=== PATIENT | female | born 1935 | race Caucasian/White ===

== ENCOUNTER → 2016-05-04 | Outpatient (CLI) | payer OTHER ==
[~2016-05-04] MED LIST: AMLODIPINE BESY10 MG PO; ANASTROZOLE1 MG PO; ASPIRIN81 M2 PO; ATENOLOL PO; ATENOLOL50 MG PO; CALCIUM 500 +1 EAC2 PO; CALCIUM 600 +1 EA14; CARDIZEM CD PO; CELEBREX PO; CENTRUM PO; CENTRUM SILVER PO; CLARITIN10 M2 PO; CLARITIN10 MG PO; DEXAMETHASONE4 MG PO; DULOXETINE HCL60 M1 PO; FIBER PO; FIBERCON625 MG PO; FLONASE 0.05% N16 G1; FLONASE16 GM; FLUCONAZOLE; HCTZ PO; HYDROCHLOROTHIA25 MG PO; IMITREX PO; IMITREX50 MG PO; KEFLEX500 MG PO; LEVAQUIN750 M1 PO; LIPITOR20 MG DOB; LISINOPRIL; LISINOPRIL20 MG PO; MAGNESIUM400 MG PO; MULTI VITAMIN1 EACH; NAPHCON A EYE; NAPROXEN PO; NEURONTIN600 MG; NILSTAT PO; OCUVITE LUTEIN1 CA1 PO; OCUVITE TABLET1 TAB PO; OMEPRAZOLE20 M1 PO; ONDANSETRON ODT4 MG PO; OYSTER CALCIUM500 MG PO; PERCOCET 5-3251 TAB PO; PERCOCET5/325 PO; PRILOSEC PO; RESTORIL15 MG PO; TEKTURNA; TEMAZEPAM PO; VIT B12 INJ; VIT B12 PO; VITAL-D RX TABL1 TAB PO; VITAMIN A; VITAMIN B 12; VITAMIN B-1000 MCG/1 INJ; VITAMIN B1; VITAMIN C PO; VITAMIN C1000 M2 PO; VITAMIN C500 M1 PO; VITAMIN D1000 UNIT PO; ZINC SULFATE PO; ZINC50 M1 PO; ZOFRAN PO; ZOFRAN2 MG/M1; [UNRECOGNIZED DRUG - CODE]; [UNRECOGNIZED DRUG - OTHER]
--- NOTE | ~2016-05-04 | CT2 ---
[facility] A Service of [facility] RADIOLOGY TEXT RESULTS PATIENT: RAIMUNDO KEN LOCATION: [facility] : 35 UNIT #: [id number] AGE: [address]: Chelsea Dudley MD SEX: F ORDER DR: [id number] [facility] [address] [place], [place] [address] [id number] O MR#: [id number] Acc #: [id number] NAME: RAIMUNDO KEN : 1935 SEX: F STUDY DATE/TIME: 05/04/2016 11:36 UNIT: [facility] ROOM: STUDY DESCRIPTION: CT Abd and Pelv W Cont Attending Physician: Chelsea Dudley M.D. Ordering Physician: Chelsea Dudley M.D. Primary Care Physician: Lexa Reeves M.D. MEDICAL IMAGING REPORT This report is preliminary unless electronic signature is present EXAM CT abdomen and pelvis with contrast INDICATIONS Restaging breast cancer. Right breast cancer status post mastectomy 2013. TECHNIQUE Contrast-enhanced CT of the abdomen and pelvis. 100 cc of Isovue-370. This CT exam was performed with one or more of the following radiation dose reduction techniques: automatic exposure control, adjustment of mA and/or kV according to patient size, and iterative reconstruction. COMPARISON 06/17/2015. FINDINGS ABDOMEN WITH CONTRAST: Refer to separately dictated chest CT for thoracic findings. Liver, spleen, adrenal glands, pancreas and gallbladder unremarkable. Small hiatal hernia. Small cyst in the upper pole of the left kidney is stable. Small non-obstructing calculi in the lower pole right and left kidney. Moderate colonic stool burden. Appendix is normal. PELVIS WITH CONTRAST: Previous hysterectomy. No pelvic mass or fluid. No aggressive appearing bone lesion. IMPRESSION No convincing evidence for metastatic disease in the abdomen or pelvis. [facility] A Service [facility] RADIOLOGY TEXT RESULTS PATIENT: RAIMUNDO KEN LOCATION: [facility] : 35 UNIT #: [id number] AGE: [address]: Chelsea Dudley MD SEX: F ORDER DR: Dictated by... Johan Davis M.D. THIS IS AN ELECTRONICALLY VERIFIED REPORT Johan Davis M.D. at 05/05/2016 7:53 AM EED/pcl TD: 05/04/2016 17:01 JOB #: [id number] MEDICAL IMAGING REPORT COPY
--- NOTE | ~2016-05-04 | CT55 ---
[facility] A Service of [facility] RADIOLOGY TEXT RESULTS PATIENT: RAIMUNDO KEN LOCATION: [facility] : 35 UNIT #: [id number] AGE: [address]: Chelsea Dudley MD SEX: F ORDER DR: [id number] [facility] [address] [place], [place] [address] [id number] O MR#: [id number] Acc #: [id number] NAME: RAIMUNDO KEN : 1935 SEX: F STUDY DATE/TIME: 05/04/2016 11:36 UNIT: [facility] ROOM: STUDY DESCRIPTION: CT Chest W Con Attending Physician: Chelsea Dudley M.D. Ordering Physician: Chelsea Dudley M.D. Primary Care Physician: Lexa Reeves M.D. MEDICAL IMAGING REPORT This report is preliminary unless electronic signature is present EXAM CT chest with contrast. HISTORY Restaging breast cancer. Patient is status post right mastectomy, February 2013. Observation for metastatic disease. PROCEDURE Contrast-enhanced CT of the chest. 100 mL of Isovue-370. This CT exam was performed with one or more of the following radiation dose reduction techniques: automatic exposure control, adjustment of mA and/or kV according to patient size, and iterative reconstruction. COMPARISON STUDIES 06/17/2015 FINDINGS Previous right mastectomy. There is a 3-mm noncalcified nodule in the right lower lobe. This has been stable since 2013 and is benign. No dense consolidation, no new nodule. No adenopathy. No aggressive-appearing bone lesion. IMPRESSION No evidence for metastatic disease to the chest. No change from 06/17/2015. Dictated by... Johan Davis M.D. THIS IS AN ELECTRONICALLY VERIFIED REPORT Johan Davis M.D. at 05/05/2016 7:53 AM [facility] A Service [facility] RADIOLOGY TEXT RESULTS PATIENT: RAIMUNDO KEN LOCATION: [facility] : 35 UNIT #: [id number] AGE: [address]: Chelsea Dudley MD SEX: F ORDER DR: DAMIAN/zuleima TD: 05/04/2016 16:34 JOB #: [id number] MEDICAL IMAGING REPORT COPY
--- NOTE | ~2016-05-04 | MY7 ---
[facility] A Service of [facility] RADIOLOGY TEXT RESULTS PATIENT: RAIMUNDO KEN LOCATION: [facility] : 35 UNIT #: [id number] AGE: [address]: Chelsea Dudley MD SEX: F ORDER DR: [id number] [facility] [address] [place], [place] [address] [id number] O MR#: [id number] Acc #: [id number] NAME: RAIMUNDO KEN. : 1935 SEX: F STUDY DATE/TIME: 05/04/2016 9:03 UNIT: [facility] ROOM: STUDY DESCRIPTION: MY Mammogram Dx Dig Lt Attending Physician: Chelsea Dudley M.D. Ordering Physician: Chelsea Dudley M.D. Primary Care Physician: Lexa Reeves M.D. MEDICAL IMAGING REPORT This report is preliminary unless electronic signature is present EXAM Left digital diagnostic mammogram with CAD COMPARISON May 19, 2015; May 16, 2014; March 16 2013; March 13, 2013; March 02, 2013 and April 13, 2012. INDICATION 80-year-old female with a history of right breast cancer treated with mastectomy February 2013. Patient denies current complaints. FINDINGS There are scattered fibroglandular densities in the left breast. There are no suspicious findings in the left breast. IMPRESSION 1. Post right mastectomy for breast cancer. 2. No mammographic evidence of malignancy in the left breast. Continued annual mammography is recommend for as long as the patient is in good health ([employer]). Patients over the age of 40 are entered into a reminder system with target due date for the next mammogram. A result letter will also be sent to the patient. BIRADS: 2 Benign Finding Dictated by... Khoa Tee M.D. THIS IS AN ELECTRONICALLY VERIFIED REPORT Khoa Tee M.D. at 05/04/2016 1:07 PM [facility] A Service [facility] RADIOLOGY TEXT RESULTS PATIENT: RAIMUNDO KEN LOCATION: [facility] : 35 UNIT #: [id number] AGE: [address]: Chelsea Dudley MD SEX: F ORDER DR: ANGEL/karla TD: 05/04/2016 12:11 JOB #: [id number] MEDICAL IMAGING REPORT COPY
[2016-05-04 10:41] LABS: POC - GFR >60.0 mL/min (>60)
== END | disposition home or self-care (01) ==
LOC: CMAM 08:34
PROVIDERS: Internal Medicine Hematology
DX: C50.919 Malignant neoplasm of unspecified site of unspecified female breast (principal); Z90.11 Acquired absence of right breast and nipple
CPT/HCPCS: 71260; 74177; 82565; G0206; Q9967

== ENCOUNTER → 2016-07-14 | Outpatient (CLI) | payer MEDICARE ==
--- NOTE | ~2016-07-14 | TH ---
Unit #: [id number] #: [id number] Patient: RAIMUNDO KEN [id number] [facility]. [place], [place] [address] [id number] O MR#: [id number] NAME: RAIMUNDO KEN. : 1935 SEX: F STUDY DATE/TIME: 07/14/2016 UNIT: [facility] ROOM: STUDY DESCRIPTION: Cardoilite imaging Attending Physician: Sander Stone M.D. Referring Physician: Sander Stone M.D. Primary Care Physician: Lexa Reeves M.D. CARDIOLOGY REPORT EXAM Cardiac stress test/Cardiolite imaging. INDICATION FOR STUDY Dyspnea, inability to exercise adequately for the diagnosis of obstructive coronary disease contributing to the patient's dyspnea. SUMMARY The patient was given Lexiscan intravenously while at rest as well as technetium 99m Cardiolite 12.9 and 34.6 mCi at rest and stress respectively. Appropriate views were obtained. FINDINGS Resting ECG showed flattened T waves across the precordium. With stress there was new T wave inversion from V2 through V6, and in 2, 3, AVF. There is also [address] depression, downsloping in leads 3 and AVF. There were no significant dysrhythmias. Heart rate increased from 62 to 91 and blood pressure decreased from 171/82 to 152/71. Perfusion images demonstrated normal perfusion throughout the myocardium at both rest and stress, with intestinal artifact present more at stress than at rest. End-diastolic volume is 79 ml, ejection fraction is greater than 65%. There is no significant patient motion noted during acquisition of the stress images. There is no increased lung uptake, left ventricular or right ventricular enlargement. Summed stress scores is 1. IMPRESSION 1. Myocardial perfusion scan demonstrates no ischemia or infarction. 2. Normal wall motion with excellent ejection fraction. 3. Abnormal stress ECG with Lexiscan, suggestive of ischemia. Cannot rule out small vessel ischemia in this patient. Dictated by... Juan Colbert M.D. Akiko TD: 07/14/2016 13:44 JOB #: [id number] Unit #: [id number] #: [id number] Patient: RAIMUNDO KEN CARDIOLOGY REPORT Page 1 of 1 X Juan Colbert MD CARDIOLOGY REPORT
--- NOTE | ~2016-07-14 | ST ---
Unit #: [id number] #: [id number] Patient: RAIMUNDO KEN [id number] [address] [id number] O MR#: [id number] NAME: RAIMUNDO KEN. : 1935 SEX: F STUDY DATE/TIME: 07/14/2016 UNIT: CN ROOM: STUDY DESCRIPTION: Cardiac stress test. Attending Physician: Sander Stone M.D. Referring Physician: Sander Stone M.D. Primary Care Physician: Lexa Reeves M.D. CARDIOLOGY REPORT EXAM Cardiac stress test. Results included in Cardiolite imaging report. Dictated by... Juan Colbert M.D. PJR/gz TD: 07/14/2016 13:50 JOB #: [id number] CARDIOLOGY REPORT Page 1 of 1 X Juan Colbert MD CARDIOLOGY REPORT
== END | disposition home or self-care (01) ==
LOC: CNUC 06:19
DX: Z01.818 Encounter for other preprocedural examination (principal); I11.9 Hypertensive heart disease without heart failure; I34.0 Nonrheumatic mitral (valve) insufficiency; R94.31 Abnormal electrocardiogram [ECG] [EKG]
CPT/HCPCS: 78452; 93017; 93306; A9500; J2785

== ENCOUNTER 2016-11-07 17:36 | Observation (INO) | payer MEDICARE ==
[~2016-11-07] VITALS: Ht 162.6 cm; Wt 81.2 kg
--- NOTE | ~2016-11-07 | CR72 ---
[facility] A Service of [facility] RADIOLOGY TEXT RESULTS PATIENT: RAIMUNDO KEN LOCATION: [facility] 306- : 35 UNIT #: [id number] AGE: [address]: JONATHAN AUGUST MD SEX: F ORDER DR: [id number] [facility] [address] [place], [place] [address] [id number] I MR#: [id number] Acc #: [id number] NAME: RAIMUNDO KEN : 1935 SEX: F STUDY DATE/TIME: 11/07/2016 18:38 UNIT: [address] ROOM: [facility] STUDY DESCRIPTION: CR Chest Single View Portable Attending Physician: Jonathan August M.D. Ordering Physician: Bozena Meyers M.D. Primary Care Physician: Lexa Reeves M.D. MEDICAL IMAGING REPORT This report is preliminary unless electronic signature is present EXAM AP portable chest Date: 11/07/2016 HISTORY Cough, congestion for 2 hours today. History of right breast cancer. Chest pain and shortness of breath. COMPARISON PA lateral chest radiograph 07/12/2016 FINDINGS Faint reticular nodular opacities are seen within the wpv-vp-[id number] lung zones bilaterally, favored to represent small airways infectious-inflammatory change. No dense consolidation is seen. Surgical clips are seen in the right axilla. Heart size is normal. No acute osseous abnormalities. IMPRESSION 1. Reticular nodular opacities in the ncu-rh-bjtuz lung zones may represent changes of small airways infectious-inflammatory process. No dense lung consolidations are identified. Dictated by... Laura Kowalski M.D. THIS IS AN ELECTRONICALLY VERIFIED REPORT Laura Kowalski M.D. at 11/09/2016 9:52 AM LLH/chase TD: 11/08/2016 11:56 JOB #: [id number] [facility] A Service of [facility] RADIOLOGY TEXT RESULTS PATIENT: RAIMUNDO KEN LOCATION: [facility] 306-01 : 35 UNIT #: [id number] AGE: [address]: JONATHAN AUGUST MD SEX: F ORDER DR: MEDICAL IMAGING REPORT Page 1 of 1 COPY
--- NOTE | ~2016-11-07 | EKG ---
PATIENT: RAIMUNDO KEN UNIT #: [id number] Ventricular Rate: 58 BPM Atrial Rate: 58 BPM P-R Interval: 170 ms QRS Duration: 76 ms Q-T Interval: 454 ms QTC Calculation(Bezet): 445 ms P [place]: 96 degrees Calculated R [place]: -8 degrees Calculated T [place]: 41 degrees Diagnosis Line: Sinus bradycardia Diagnosis Line: Otherwise normal ECG Diagnosis Line: When compared with ECG of 03-JUN-2014 10:23, Diagnosis Line: No significant change was found Diagnosis Line: Confirmed by CECILIA BUNDY MD ([id number]) on 11/07/2016 Diagnosis Line: 11:09:50 PM INTERPRETING MD: GREGOR NELSON
--- NOTE | ~2016-11-07 | DS ---
Unit #: [id number] #: [id number] Patient: RAIMUNDO KEN [id number] [facility]. [place], [place] [address] [id number] I MR#: [id number] NAME: RAIMUNDO KEN. ROOM: 306 Age: 81 Sex: F Admission Date: 11/07/2016 : 1935 Discharge Date: 11/08/2016 Attending Physician: Cat Horvath M.D. Primary Care Physician: Lexa Reeves M.D. DISCHARGE SUMMARY SHORT STAY SUMMARY HISTORY OF PRESENT ILLNESS This is an 81-year-old female known to Dr. Harris and Dr. Sander Stone with a prior history of hypertension, hyperlipidemia, TIA in the , breast cancer, status post mastectomy and chemotherapy, and prior negative Lexiscan stress test in June 2016. An echocardiogram done in June 2016 showed EF normal, mild LVH, mild to moderate mitral regurgitation, mild to moderate tricuspid regurgitation, and mild to moderate mitral regurgitation, with RVSP 52 mmHg. Patient reports she has had multiple cardiac caths over the years. She states her last cardiac cath was in 2004, although she cannot remember where or who did it. She states her cardiac cath showed normal coronary arteries. The patient presented to the ER with reports of chest discomfort. She states she was cooking dinner yesterday and developed left chest discomfort described as dull ache and a midsternal pressure. The pressure spread to her throat, and she felt like she needed to burp. She does endorse shortness of air, nausea, and diaphoresis with the discomfort. She denies palpitations or dizziness. She said she has had similar incidents in the past, although less intense, and none in the past year. The patient states she is fairly active, and she denies exertional chest pain or shortness of air, but she does report occasional dizziness. Denies dyspnea, PND, or orthopnea. Denies lower extremity edema. The pain lasted approximately 30 minutes. It resolved after nitroglycerin and aspirin were given per EMS. States she does not feel like the pain was her heart, but it scared her, so she called EMS. Her troponin was negative x2. EKG showed sinus bradycardia with nonspecific T wave abnormalities but no ischemic changes. PAST MEDICAL HISTORY 1. Hypertension. 2. Hyperlipidemia. 3. TIA in . 4. Negative Lexiscan stress test in June 2016. 5. Cardiac cath last in 2004, records not available, reportedly normal coronary arteries per patient. 6. Breast cancer, status post mastectomy, with chemotherapy. 7. Echocardiogram in June 2016 showed a normal EF, mild LVH, and mild to moderate mitral regurgitation and tricuspid regurgitation, with RVSP 52 mmHg. 8. Macular degeneration. 9. History of arrhythmia, patient does not know what type of arrhythmia. 10. Osteoarthritis. Unit #: [id number] #: [id number] Patient: RAIMUNDO KEN PAST SURGICAL HISTORY 1. Tonsillectomy. 2. Hysterectomy. 3. Lumbar laminectomy. 4. Right modified radical mastectomy. 5. Cataract removal and lens implant. 6. Colon resection. 7. Total knee replacement in June 2016. FAMILY HISTORY Her father after an NE at the age of 50. Her brother had coronary artery disease and at the age of 61 from complications of an NE. Her mother had a NE in her 60s and at the age of 84. Her sister has coronary artery disease and is alive. SOCIAL HISTORY The patient is a lifetime nonsmoker. She denies alcohol or illicit drug use. She is a and lives alone. ALLERGIES No known drug allergies. HOME MEDICATIONS 1. Hydrochlorothiazide 25 mg p.o. daily. 2. Atenolol 50 mg p.o. twice daily. 3. Norvasc 10 mg p.o. daily. 4. Lisinopril 40 mg p.o. daily. 5. Omeprazole 20 mg p.o. daily. 6. Anastrozole 1 mg p.o. at bedtime. 7. Claritin 10 mg p.o. daily. 8. Flonase nasal spray 16 g nasally daily. 9. Lipitor 20 mg p.o. daily. 10. Imitrex 50 mg p.o. daily. 11. Duloxetine 60 mg p.o. daily. REVIEW OF SYSTEMS A 10-point review of systems was conducted and is otherwise negative except for what was stated in the HPI. PHYSICAL EXAMINATION VITAL SIGNS: Temperature 97.6, heart rate 60, blood pressure 159/57. GENERAL: This is a pleasant 81-year-old female resting in bed in no acute distress. HEENT: Head is atraumatic and normocephalic. Pupils are equal and reactive to light. Mucous membranes are moist and intact. NECK: Supple. Trachea is midline. No JVD. LUNGS: Clear. Nonlabored respirations. CARDIOVASCULAR: S1 and S2. Regular rate and rhythm. Positive systolic murmur. No rubs or gallops. ABDOMEN: Soft, nontender, nondistended. Positive bowel sounds. EXTREMITIES: Pulses are palpable. No pedal edema. NEUROLOGIC: Alert and oriented x3. Moves all extremities equally and follows commands without difficulty. DIAGNOSTIC STUDIES LABORATORY: Sodium 134, potassium 3.6, chloride 101, BUN 15, creatinine 0.7, glucose 98. Hemoglobin 12.5, hematocrit 36.4, white blood cell count Unit #: [id number] #: [id number] Patient: RAIMUNDO KEN D 5.5, platelets 212,000. TSH 6.28. AST 25, ALT 18, alkaline phosphatase 88. BNP 98. Point of care troponin less than 0.05 and repeat troponin 0.03. Cholesterol 175, triglycerides 189, LDL 101, and HDL 35. IMAGING: Chest x-ray shows reticular nodular opacities in the rks-fo-mfoio lung zones which may represent changes of small airways infectious-inflammatory process. No dense lung consolidations are identified. CARDIOLOGY: EKG shows sinus bradycardiac with nonspecific T wave abnormalities. ASSESSMENT 1. Chest pain, atypical. 2. Lexiscan stress test negative for ischemia June 2016. 3. Hypertension. 4. Hyperlipidemia. 5. History of arrhythmia. PLAN Patient is currently chest pain free. Her troponins and EKG are negative for ischemic changes. She had a negative Lexiscan stress test in June 2016 as preop evaluation for knee replacement surgery. She denies exertional chest pain, and she would like to go home. We will discharge her home. Follow up with her primary care doctor in one to two weeks. Start PPI. Consider GI workup as outpatient. She was instructed to return to hospital if her chest pain returns. We will replace her potassium prior to discharge. She can follow up with Dr. Stone in six to eight weeks. Dictated by... FRAN Dillard/kenna TD: 11/08/2016 17:09 JOB #: [id number] DISCHARGE SUMMARY Page 1 of 1 X X DISCHARGE SUMMARY
--- NOTE | ~2016-11-07 | EKG ---
PATIENT: RAIMUNDO KEN UNIT #: [id number] Ventricular Rate: 61 BPM Atrial Rate: 61 BPM P-R Interval: 150 ms QRS Duration: 72 ms Q-T Interval: 458 ms QTC Calculation(Bezet): 461 ms Calculated T [place]: 43 degrees Diagnosis Line: Normal sinus rhythm Diagnosis Line: Normal ECG Diagnosis Line: When compared with ECG of 07-NOV-2016 17:43, Diagnosis Line: No significant change was found Diagnosis Line: Confirmed by CIRILO CHAWLA MD ([id number]) on 11/10/2016 Diagnosis Line: 7:49:50 AM INTERPRETING MD: CAMMY NELSON
[~2016-11-07 17:36] MED LIST changes: -ASPIRIN81 M2 PO; -DULOXETINE HCL60 M1 PO; -IMITREX50 MG PO
[2016-11-07 19:02] LABS: BASOPHIL% 0.8 % (0-2.5); EOSINOPHIL# 0.3 X10e3 (0-0.7); EOSINOPHIL% 4.5 % (0.0-7.0); HEMATOCRIT 36.4 % (35.0-45.0); HEMOGLOBIN 12.5 gm/dL (12.0-16.0); LYMPHOCYTE# 1.3 X10e3 (1.0-3.5); LYMPHOCYTE% 23.7 % (17.0-45.0); MEAN CELL VOLUME 92.4 FL (83-96); MEAN CORPUSCULAR HEMOGLOBIN 31.8 PG (28-34); MEAN CORPUSCULAR HGB CONC 34.4 g/dL (30-36); MONOCYTE# 0.7 X10e3 (0-1.0); NEUTROPHIL# 3.3 X10e3 (1.5-7.1); PLATELET COUNT 207 X10e3 (140-420); RED BLOOD COUNT 3.94 X10e (3.90-5.30); RED CELL DISTRIBUTION WIDTH 13.7 % (11.0-15.5); WHITE BLOOD COUNT 5.5 X10e3 (4.0-10.5)
[2016-11-07 19:07] LABS: DIFF IND NO
[2016-11-07 19:14] LABS: PROTHROMBIN TIME (PATIENT) 10.7 SECONDS (10.0-11.7)
[2016-11-07 19:21] LABS: POC - CKMB 2.4 ng/mL (0.0-7.9); POC - TROPONIN <0.05 ng/mL (<=0.05)
[2016-11-07 19:24] LABS: ALBUMIN SERUM 4.4 g/dL (3.5-5.0); BILIRUBIN, DIRECT 0.1 mg/dL (0.0-0.2); BILIRUBIN,INDIRECT 0.6 mg/dL (0.0-0.9); BILIRUBIN,TOTAL 0.7 mg/dL (0.2-2.0); BUN/CREATININE RATIO 16.66; CALCIUM SERUM 9.4 mg/dL (8.4-10.2); CREATININE SERUM 0.9 mg/dL (0.6-1.4); POTASSIUM 3.6 mmol/L (3.5-5.1); PROTEIN TOTAL SERUM 7.2 g/dL (6.0-8.3)
[2016-11-07 21:25] LABS: POC - CKMB 1.6 ng/mL (0.0-7.9); POC - TROPONIN <0.05 ng/mL (<=0.05)
[2016-11-07] MEDS ORDERED: IMITREX50 MG PO (22:02)
[2016-11-07] MEDS ORDERED: DULOXETINE HCL60 M1 PO (22:04)
[2016-11-08 03:43] LABS: BASOPHIL# 0.1 X10e3 (0-0.3); BASOPHIL% 0.9 % (0-2.5); EOSINOPHIL# 0.3 X10e3 (0-0.7); HEMATOCRIT 37.7 % (35.0-45.0); HEMOGLOBIN 12.8 gm/dL (12.0-16.0); LYMPHOCYTE# 1.8 X10e3 (1.0-3.5); LYMPHOCYTE% 28.5 % (17.0-45.0); MEAN CELL VOLUME 93.2 FL (83-96); MEAN CORPUSCULAR HEMOGLOBIN 31.7 PG (28-34); MEAN PLATELET VOLUME 8.1 FL (6.5-11.5); MONOCYTE# 0.7 X10e3 (0-1.0); MONOCYTE% 10.7 % (3.0-12.0); NEUTROPHIL# 3.5 X10e3 (1.5-7.1); NEUTROPHIL% 54.9 % (40-75); PLATELET COUNT 212 X10e3 (140-420); RED BLOOD COUNT 4.04 X10e (3.90-5.30); RED CELL DISTRIBUTION WIDTH 13.5 % (11.0-15.5); WHITE BLOOD COUNT 6.3 X10e3 (4.0-10.5)
[2016-11-08 03:58] LABS: DIFF IND NO
[2016-11-08 04:09] LABS: BUN/CREATININE RATIO 21.42; CREATININE SERUM 0.7 mg/dL (0.6-1.4); GLOM FILT RATE Estimated 81.3 mL/min (>60); POTASSIUM 3.6 mmol/L (3.5-5.1)
[2016-11-08] MEDS ORDERED: ASPIRIN81 M2 PO (15:12)
== END 2016-11-08 17:06 | disposition home or self-care (01) ==
LOC: CED 17:36 → C3A PCU 20:40 → CED 20:40 → CEDOF 20:40 → CED 20:43 → C3A PCU 11-08 00:06 → CEDOF 11-08 00:06 → C3A PCU 11-08 17:06
PROVIDERS: Emergency Medicine; Internal Medicine
DX: R07.89 Other chest pain (principal); I10 Essential (primary) hypertension; E78.5 Hyperlipidemia, unspecified; R00.1 Bradycardia, unspecified; K21.9 Gastro-esophageal reflux disease without esophagitis; M81.0 Age-related osteoporosis without current pathological fracture; M17.0 Bilateral primary osteoarthritis of knee; G43.909 Migraine, unspecified, not intractable, without status migrainosus; Z85.3 Personal history of malignant neoplasm of breast; Z86.73 Personal history of transient ischemic attack (TIA), and cerebral infarction without residual deficits; Z82.49 Family history of ischemic heart disease and other diseases of the circulatory system; Z79.899 Other long term (current) drug therapy; Z90.711 Acquired absence of uterus with remaining cervical stump; Z90.11 Acquired absence of right breast and nipple; Z90.49 Acquired absence of other specified parts of digestive tract; Z96.659 Presence of unspecified artificial knee joint
CPT/HCPCS: 36415; 71010; 80048; 80061; 80076; 82553; 83036; 83880; 84443; 84484; 85025; 85610; 93005; 99285; G0378